=== PATIENT | female | born 2000 | race Caucasian/White ===

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

== ENCOUNTER 2019-05-23 22:11 | Emergency (ER) | payer MEDICAID ==
[~2019-05-23] VITALS: Ht 175.3 cm; Wt 106.8 kg
[2019-05-23 22:14] VITALS: BP 137/80; TEMP 98.8
[2019-05-23 22:43] LABS: COLLECTION METHOD CLEAN CATCH
[2019-05-23 22:48] LABS: MUCOUS Present /lpf; PH 6 (5-8); SQUAMOUS EPITHELIAL None Seen /hpf; URINE APPEARANCE Clear; URINE BACTERIA None Seen /hpf; URINE BILIRUBIN Negative (NEGATIVE); URINE BLOOD 1+ (NEGATIVE); URINE COLOR Yellow; URINE GLUCOSE Negative (NEGATIVE); URINE KETONE Negative (NEGATIVE); URINE LEUKOCYTE ESTERASE Negative (NEGATIVE); URINE NITRATE Negative (NEGATIVE); URINE PROTEIN(semi-quant) Negative (NEGATIVE); URINE RBC 0-2 /hpf; URINE UROBILINOGEN Negative (NEGATIVE)
[2019-05-23] MEDS ORDERED: CYMBALTA 60MG60 MG PO (22:55)
[2019-05-23] MEDS ORDERED: DEPO-TESTOS200 MG/M1 (22:56)
[2019-05-23 23:07] LABS: BASO % 0.3 % (0.0-2.0); EOS # 0.2 (0.0-0.7); EOS % 1.5 % (0-4.0); GRAN # 7.5 (1.4-6.5); GRAN % 65.2 % (42.2-75.2); LYMPH # 3.1 (1.2-3.4); LYMPH % 26.9 % (20.0-51.0); MEAN CELL VOLUME 83 fl (80.0-95.0); MEAN CORPUSCULAR HEMOGLOBIN 27 pg (26.0-32.0); MEAN CORPUSCULAR HGB CONC 33 g/dl (33.0-37.0); MEAN PLATELET VOLUME 9.8 fl (7.4-10.4); MONO # 0.7 (0.1-0.6); MONO % 5.7 % (1.7-9.3); PLATELET COUNT 288 K/mm3 (130-400); RED BLOOD COUNT 5.18 M/mm3 (4.10-5.30); REDCELL DISTRIBUTION WIDTH-CV 14.9 % (11.5-14.5)
[2019-05-23 23:20] LABS: ALBUMIN 4.2 gm/dL (3.5-5.0); BILIRUBIN,TOTAL 0.3 mg/dL (0.0-1.0); C-REACTIVE PROTEIN 0.7 mg/dL (0.0-0.9); CALCIUM 9.3 mg/dL (8.4-10.2); CREATININE, serum 0.71 (0.52-1.25); POTASSIUM 3.8 mmol/L (3.4-5.0); TOTAL PROTEIN 7.6 gm/dL (6.4-8.2)
[2019-05-24 00:48] VITALS: PULSE 81
== END 2019-05-24 00:48 | disposition home or self-care (01) ==
LOC: COL.ER 22:11
PROVIDERS: Nurse Practitioner
DX: R10.2 Pelvic and perineal pain (principal); Z90.49 Acquired absence of other specified parts of digestive tract; Z88.1 Allergy status to other antibiotic agents
CPT/HCPCS: J1885; J7030

== ENCOUNTER 2019-06-08 11:46 | Emergency (ER) | payer MEDICAID ==
[~2019-06-08] VITALS: Ht 175.3 cm; Wt 111.4 kg
[~2019-06-08 11:46] MED LIST changes: +CYMBALTA 60MG60 MG PO; +DEPO-TESTOS200 MG/M1
[2019-06-08 11:56] VITALS: BP 119/68; TEMP 98.2
[2019-06-08 12:41] LABS: BASO % 0.2 % (0.0-2.0); EOS # 0.1 (0.0-0.7); EOS % 0.6 % (0-4.0); GRAN # 7.3 (1.4-6.5); GRAN % 74.3 % (42.2-75.2); HEMATOCRIT 43.8 % (35.0-45.0); HEMOGLOBIN 14.6 g/dl (12.0-15.0); LYMPH # 1.7 (1.2-3.4); LYMPH % 17.6 % (20.0-51.0); MEAN CELL VOLUME 82 fl (80.0-95.0); MEAN CORPUSCULAR HEMOGLOBIN 27 pg (26.0-32.0); MEAN CORPUSCULAR HGB CONC 33 g/dl (33.0-37.0); MEAN PLATELET VOLUME 9.9 fl (7.4-10.4); MONO # 0.7 (0.1-0.6); MONO % 6.8 % (1.7-9.3); PLATELET COUNT 310 K/mm3 (130-400); RED BLOOD COUNT 5.32 M/mm3 (4.10-5.30); REDCELL DISTRIBUTION WIDTH-CV 15.2 % (11.5-14.5)
[2019-06-08 12:49] LABS: ALBUMIN 4.7 gm/dL (3.5-5.0); BILIRUBIN,TOTAL 0.7 mg/dL (0.0-1.0); CALCIUM 9.5 mg/dL (8.4-10.2); CREATININE, serum 0.58 (0.52-1.25); TOTAL PROTEIN 8.2 gm/dL (6.4-8.2)
[2019-06-08 14:26] LABS: COLLECTION METHOD CLEAN CATCH
[2019-06-08 14:31] LABS: MUCOUS Present /lpf; PH 9 (5-8); SQUAMOUS EPITHELIAL 0-2 /hpf; URINE APPEARANCE Clear; URINE BACTERIA None Seen /hpf; URINE BILIRUBIN Negative (NEGATIVE); URINE BLOOD Negative (NEGATIVE); URINE COLOR Yellow; URINE GLUCOSE Negative (NEGATIVE); URINE KETONE Negative (NEGATIVE); URINE LEUKOCYTE ESTERASE Negative (NEGATIVE); URINE NITRATE Negative (NEGATIVE); URINE PROTEIN(semi-quant) Negative (NEGATIVE); URINE UROBILINOGEN Negative (NEGATIVE)
[2019-06-08] MEDS ORDERED: ZOFRAN ODT4 MG PO (15:31)
[2019-06-08 15:40] VITALS: PULSE 65
== END 2019-06-08 15:43 | disposition home or self-care (01) ==
LOC: COL.ER 11:46
PROVIDERS: Emergency Medicine
DX: R19.7 Diarrhea, unspecified (principal); R11.2 Nausea with vomiting, unspecified; Z90.49 Acquired absence of other specified parts of digestive tract
CPT/HCPCS: J2550; J7030

== ENCOUNTER 2019-10-10 11:55 | Emergency (ER) | payer MEDICAID ==
[~2019-10-10] VITALS: Ht 175.3 cm; Wt 113.6 kg
[~2019-10-10 11:55] MED LIST changes: +COLACE 100100 MG/CAP PO; +MOBIC15 MG PO; +PERCOCET 325 MG1 TA2 PO; +ZOFRAN ODT4 MG PO
[2019-10-10 12:37] LABS: COLLECTION METHOD CLEAN CATCH
[2019-10-10 12:44] LABS: BASO % 0.2 % (0.0-2.0); EOS # 0.1 (0.0-0.7); EOS % 0.9 % (0-4.0); GRAN # 11.3 (1.4-6.5); GRAN % 79.4 % (42.2-75.2); HEMATOCRIT 45.5 % (35.0-45.0); HEMOGLOBIN 15.2 g/dl (12.0-15.0); LYMPH % 14.2 % (20.0-51.0); MEAN CELL VOLUME 87 fl (80.0-95.0); MEAN CORPUSCULAR HEMOGLOBIN 29 pg (26.0-32.0); MEAN CORPUSCULAR HGB CONC 33 g/dl (33.0-37.0); MEAN PLATELET VOLUME 10.1 fl (7.4-10.4); MONO # 0.7 (0.1-0.6); PLATELET COUNT 269 K/mm3 (130-400); RED BLOOD COUNT 5.25 M/mm3 (4.10-5.30); REDCELL DISTRIBUTION WIDTH-CV 12.7 % (11.5-14.5)
[2019-10-10 12:50] LABS: MUCOUS Present /lpf; PH 7 (5-8); SQUAMOUS EPITHELIAL 0-2 /hpf; URINE APPEARANCE Cloudy; URINE BACTERIA Moderate /hpf; URINE BILIRUBIN Negative (NEGATIVE); URINE BLOOD 2+ (NEGATIVE); URINE COLOR Yellow; URINE GLUCOSE Negative (NEGATIVE); URINE KETONE Negative (NEGATIVE); URINE LEUKOCYTE ESTERASE 3+ (NEGATIVE); URINE NITRATE Positive (NEGATIVE); URINE PROTEIN(semi-quant) 2+ (NEGATIVE); URINE RBC 20-50 /hpf; URINE UROBILINOGEN Negative (NEGATIVE)
[2019-10-10 12:55] LABS: ALBUMIN 4.9 gm/dL (3.5-5.0); BILIRUBIN,TOTAL 0.4 mg/dL (0.0-1.0); C-REACTIVE PROTEIN 0.8 mg/dL (0.0-0.9); CREATININE, serum 0.74 (0.52-1.25); POTASSIUM 3.9 mmol/L (3.4-5.0); TOTAL PROTEIN 8.5 gm/dL (6.4-8.2)
[2019-10-10] MEDS ORDERED: CEFTIN500 MG PO (14:17)
[2019-10-10 14:30] VITALS: BP 137/61; PULSE 80; TEMP 98.8
== END 2019-10-10 14:40 | disposition home or self-care (01) ==
LOC: COL.ER 11:55
PROVIDERS: Nurse Practitioner
DX: N39.0 Urinary tract infection, site not specified (principal); Z90.89 Acquired absence of other organs; Z88.2 Allergy status to sulfonamides
CPT/HCPCS: A4216; J0696; J2270; J2405; J7030

== ENCOUNTER 2020-12-22 09:32 | Emergency (ER) | payer MEDICAID ==
[~2020-12-22] VITALS: Ht 175.3 cm; Wt 85.0 kg
[~2020-12-22 09:32] MED LIST changes: +CEFTIN500 MG PO
[2020-12-22 09:44] VITALS: TEMP 98.3
[2020-12-22 12:44] VITALS: BP 144/82; PULSE 87
== END 2020-12-22 12:44 | disposition home or self-care (01) ==
LOC: COL.ER 09:32
DX: M76.51 Patellar tendinitis, right knee (principal); Z88.2 Allergy status to sulfonamides